=== PATIENT | male | born 1980 | race Caucasian/White ===

== ENCOUNTER 2017-01-08 20:59 | Emergency (ER) | payer OTHER ==
[~2017-01-08] VITALS: Ht 175.3 cm; Wt 72.6 kg
[2017-01-08] MEDS ORDERED: FLUORESCEIN OPHTH 1 MG STRIP OU ONE (23:00)
[2017-01-08] MEDS ORDERED: TETRACAINE 0.5% OPHTH SOLN 4ML OU ONE (23:00)
[2017-01-08] MEDS ORDERED: LACROIN OP (23:13)
[2017-01-08] MEDS ORDERED: LACRILUBE (AKWA TEARS) OPHTH OINT 3.5 GM OS ONE (23:15)
[2017-01-08 23:21] VITALS: BP 135/85
== END 2017-01-08 23:23 | disposition home or self-care (01) ==
LOC: M ED 22:49
DX: H15.9 Unspecified disorder of sclera (principal); Z87.828 Personal history of other (healed) physical injury and trauma

== ENCOUNTER → 2020-04-22 | Outpatient (CLI) | payer OTHER ==
[~2020-04-22] MED LIST: LACROIN OP
== END ==
LOC: M LAB 14:55
PROVIDERS: ATTEND Urology
DX: C62.92 Malignant neoplasm of left testis, unspecified whether descended or undescended (principal)

== ENCOUNTER → 2020-04-24 | Outpatient (CLI) | payer OTHER ==
[~2020-04-24] MED LIST changes: +GASTROGRAFIN SOLUTION 30ML (Q9963) As Ordered ONE; +ISOVUE-370 76% 100ML VIAL As Ordered ONE
== END ==
LOC: M RAD 11:36
PROVIDERS: ATTEND Urology
DX: C62.92 Malignant neoplasm of left testis, unspecified whether descended or undescended (principal)
CPT/HCPCS: 71260; 74177; Q9963; Q9967

== ENCOUNTER 2021-03-16 19:33 | Emergency (ER) | payer OTHER ==
[~2021-03-16] VITALS: Ht 175.3 cm; Wt 88.1 kg
[~2021-03-16 19:33] MED LIST changes: -GASTROGRAFIN SOLUTION 30ML (Q9963) As Ordered ONE; -ISOVUE-370 76% 100ML VIAL As Ordered ONE
[2021-03-16] MEDS ORDERED: ACET-683 PO (19:58)
[2021-03-16] MEDS ORDERED: IBUP-1426 PO (19:58)
[2021-03-16 21:23] VITALS: BP 129/76
== END 2021-03-16 21:23 | disposition home or self-care (01) ==
LOC: M ED 19:33
DX: S09.91XA Unspecified injury of ear, initial encounter (principal); X58.XXXA Exposure to other specified factors, initial encounter; Y92.9 Unspecified place or not applicable; Y93.89 Activity, other specified; Y99.9 Unspecified external cause status

== ENCOUNTER → 2021-04-18 | Outpatient (REF) | payer OTHER ==
[~2021-04-18] MED LIST changes: +ACET-683 PO; +IBUP-1426 PO
[2021-04-18 13:15] LABS: SEMEN APPEARANCE OPAQUE (OPAQUE); SEMEN VISCOSITY LIQUID (LIQUID); SEMEN VOLUME 2.5 ml (2.0-5.0); SPERM CONCENTRATION 17.1 M/ml (>=15.0); WBC CONCENTRATION >1 M/ml (<=1 M/ml)
== END ==
LOC: M LAB REF 13:06
PROVIDERS: ATTEND Obstetrics & Gynecology
DX: N46.8 Other male infertility (principal)